=== PATIENT | male | born 1960 | race Caucasian/White ===

== ENCOUNTER 2022-02-05 09:31 | Inpatient (IN) ==
[2022-02-05] MEDS ORDERED: Iodixanol (CONTRAST) 320 MG/ML 100 ML SDV IV ONE (09:38)
[2022-02-05 09:57] LABS: ABS Lymphocytes 2.1 10^3/ul (1.0-4.8); ABS Monocytes 0.7 10^3/ul (0-0.8); ABS Neutrophils 9.8 10^3/ul (1.5-7.7); Eosinophil % 0.1 %; Hematocrit 41 % (42-52); Hemoglobin 13.6 g/dL (14.0-18.0); Lymphocyte % 16.9 %; Mean Corpuscular HGB Conc 34 g/dL (31-36); Mean Corpuscular Hemoglobin 30 pg (27-31); Mean Corpuscular Volume 90 fL (80-94); Mean Platelet Volume 7.6 fL (7.4-10.4); Nucleated Red Blood Cells % 0.1; Platelet Count 180 10^3/uL (150-450); Red Blood Count 4.53 10^6 /uL (4.18-5.48); Red Cell Distribution Width 13 % (10-15); White Blood Count 12.6 10^3/uL (3.5-10.8)
[2022-02-05 10:23] LABS: Activated Partial Thrombo Time 24.7 seconds (26.0-38.0); INR 1.07 (0.89-1.11)
[2022-02-05 10:55] LABS: Albumin 4.6 g/dL (3.2-5.2); Albumin/Globulin Ratio 1.5 (1-3); Calcium 9.6 mg/dL (8.6-10.3); HDL Cholesterol 51.5 mg/dL; Potassium 3.8 mmol/L (3.5-5.0); Total Bilirubin 0.7 mg/dL (0.2-1.0); Total Protein 7.6 g/dL (6.4-8.9); eGFR CKD-EPI 94.6 (>60)
[2022-02-05] MEDS ORDERED: NS 0.9% 1000 ml BAG 1,000 ML IV ONE (11:15)
[2022-02-05] MEDS ORDERED: HYDROcodone/Acetamin 10/325 TAB (NF) PO PRN (11:25)
[2022-02-05] MEDS: Enoxaparin 40 MG/0.4 ML SYR SUBCUT SCH (11:51)
[2022-02-05 11:55] LABS: C Reactive Protein 1.72 mg/L (<8.01)
[2022-02-05 11:56] LABS: TSH Ultra Thyroid Stim Horm 0.41 mcIU/mL (0.34-5.60)
[2022-02-05 12:38] LABS: Erythrocyte Sed Rate 4 mm/Hr (0-19)
[2022-02-05] MEDS ORDERED: Perflutren Lipid Microsphere 3 ML VIAL ONE (13:56)
[2022-02-05] MEDS ORDERED: Norepinephrine 16MCG/ML BAG NS 4,000 MCG/250 ML BAG IV SCH (14:00)
[2022-02-05 14:07] LABS: Urine Appearance Slightly Cloudy; Urine Bilirubin Negative (Negative); Urine Glucose Negative (Negative); Urine Ketones Negative (Negative); Urine Nitrite Negative (Negative); Urine Protein Negative (Negative); Urine Urobilinogen 0.2 (Negative) (Negative)
[2022-02-05 14:12] LABS: Urine Color Yellow
[2022-02-05 14:44] LABS: Urine Bacteria 1+ (Absent); Urine Red Blood Cell 3+(>10/hpf) (Absent); Urine Squamous Epithelial Cell Present (Absent); Urine White Blood Cell 3+(>20/hpf) (Absent)
[2022-02-05] MEDS: HYDROcodone/Acetamin 10/325 TAB (NF) PO PRN (19:42)
[2022-02-05] MEDS: Norepinephrine 16MCG/ML BAGD5W 4,000 MCG/250 ML BAG IV SCH (23:47)
[2022-02-05] MEDS ORDERED: Morphine 2 MG/ML SYRINGE IV ONE (23:53)
[2022-02-06] MEDS: NS 0.9% 1000 ml BAG 1,000 ML IV SCH ×2 (02:34→13:46)
[2022-02-06] MEDS: Norepinephrine 16MCG/ML BAGD5W 4,000 MCG/250 ML BAG IV SCH ×7 (04:04→23:49)
[2022-02-06 04:30] LABS: Hematocrit 37 % (42-52); Hemoglobin 12.8 g/dL (14.0-18.0); Mean Corpuscular HGB Conc 35 g/dL (31-36); Mean Corpuscular Hemoglobin 31 pg (27-31); Mean Corpuscular Volume 88 fL (80-94); Mean Platelet Volume 7.4 fL (7.4-10.4); Platelet Count 206 10^3/uL (150-450); Red Blood Count 4.15 10^6 /uL (4.18-5.48); Red Cell Distribution Width 14 % (10-15); White Blood Count 16.4 10^3/uL (3.5-10.8)
[2022-02-06 05:03] LABS: Calcium 8.6 mg/dL (8.6-10.3); Magnesium 1.9 mg/dL (1.9-2.7); Phosphorus 2.7 mg/dL (2.5-5.0); Potassium 3.4 mmol/L (3.5-5.0); eGFR CKD-EPI 89.9 (>60)
[2022-02-06] MEDS: HYDROcodone/Acetamin 10/325 TAB (NF) PO PRN ×4 (05:24→19:19)
[2022-02-06] MEDS ORDERED: Potassium Chlor 20 meq TAB.ER PO ONE (05:26)
[2022-02-06 06:07] LABS: ABS Basophils 0.1 10^3/ul (0-0.2); ABS Lymphocytes 3.5 10^3/ul (1.0-4.8); ABS Monocytes 1.6 10^3/ul (0-0.8); ABS Neutrophils 11.2 10^3/ul (1.5-7.7); Eosinophil % 0.2 %; Lymphocyte % 21.3 %
[2022-02-06] MEDS ORDERED: Magnesium Sulfate IV 1GM/100ML 1 GM/100 ML BAG IV ONE (07:20)
[2022-02-06] MEDS: Aspirin EC 81 mg TAB.EC (enteric coated) PO SCH (08:38)
[2022-02-06] MEDS: cefTRIAXone 1 gm/50 mL D5W 1 GM/50 ML BAG IV SCH (09:44)
[2022-02-06] MEDS: Lidocaine PATCH 5% PATCH TRANSDERM SCH ×2 (11:28→17:13)
[2022-02-06] MEDS: Enoxaparin 40 MG/0.4 ML SYR SUBCUT SCH (11:29)
[2022-02-06] MEDS ORDERED: Iohexol 350 (CONTRAST) 500 ML MDV IV ONE (12:20)
[2022-02-07] MEDS: HYDROcodone/Acetamin 10/325 TAB (NF) PO PRN ×5 (01:12→20:34)
[2022-02-07 04:30] LABS: Hematocrit 35 % (42-52); Hemoglobin 12.2 g/dL (14.0-18.0); Mean Corpuscular HGB Conc 35 g/dL (31-36); Mean Corpuscular Hemoglobin 31 pg (27-31); Mean Corpuscular Volume 89 fL (80-94); Mean Platelet Volume 7.3 fL (7.4-10.4); Platelet Count 183 10^3/uL (150-450); Red Blood Count 3.91 10^6 /uL (4.18-5.48); Red Cell Distribution Width 13 % (10-15); White Blood Count 14.3 10^3/uL (3.5-10.8)
[2022-02-07 05:12] LABS: Calcium 8.4 mg/dL (8.6-10.3); Phosphorus 2.9 mg/dL (2.5-5.0); Potassium 3.7 mmol/L (3.5-5.0); eGFR CKD-EPI 99.7 (>60)
[2022-02-07] MEDS ORDERED: Potassium Chlor 20 meq TAB.ER PO ONE (05:26)
[2022-02-07] MEDS: Norepinephrine 16MCG/ML BAGD5W 4,000 MCG/250 ML BAG IV SCH ×2 (05:36→09:30)
[2022-02-07] MEDS: Lidocaine PATCH 5% PATCH TRANSDERM SCH (09:24)
[2022-02-07] MEDS: cefTRIAXone 1 gm/50 mL D5W 1 GM/50 ML BAG IV SCH (09:24)
[2022-02-07] MEDS: Aspirin EC 81 mg TAB.EC (enteric coated) PO SCH (09:25)
[2022-02-07] MEDS ORDERED: Magnesium Hydroxide LIQ 30 ML UDC PO ONE (09:26)
[2022-02-07] MEDS: Enoxaparin 40 MG/0.4 ML SYR SUBCUT SCH (12:29)
[2022-02-08 05:35] LABS: Hematocrit 34 % (42-52); Hemoglobin 11.1 g/dL (14.0-18.0); Mean Corpuscular HGB Conc 33 g/dL (31-36); Mean Corpuscular Hemoglobin 29 pg (27-31); Mean Corpuscular Volume 90 fL (80-94); Mean Platelet Volume 7.3 fL (7.4-10.4); Platelet Count 169 10^3/uL (150-450); Red Blood Count 3.78 10^6 /uL (4.18-5.48); Red Cell Distribution Width 14 % (10-15); White Blood Count 10.1 10^3/uL (3.5-10.8)
[2022-02-08] MEDS: HYDROcodone/Acetamin 10/325 TAB (NF) PO PRN ×4 (05:39→21:19)
[2022-02-08 06:20] LABS: Calcium 8.8 mg/dL (8.6-10.3); Magnesium 2.2 mg/dL (1.9-2.7); Potassium 3.9 mmol/L (3.5-5.0); eGFR CKD-EPI 99.4 (>60)
[2022-02-08] MEDS: Lidocaine PATCH 5% PATCH TRANSDERM SCH (08:15)
[2022-02-08] MEDS: Aspirin EC 81 mg TAB.EC (enteric coated) PO SCH (08:16)
[2022-02-08] MEDS: cefTRIAXone 1 gm/50 mL D5W 1 GM/50 ML BAG IV SCH (08:19)
[2022-02-08] MEDS: Enoxaparin 40 MG/0.4 ML SYR SUBCUT SCH (12:21)
[2022-02-09] MEDS: HYDROcodone/Acetamin 10/325 TAB (NF) PO PRN ×2 (00:54→15:23)
[2022-02-09 06:54] LABS: ABS Eosinophils 0.2 10^3/ul (0-0.6); ABS Lymphocytes 2.7 10^3/ul (1.0-4.8); ABS Monocytes 0.7 10^3/ul (0-0.8); ABS Neutrophils 4.9 10^3/ul (1.5-7.7); Eosinophil % 2.2 %; Hematocrit 32 % (42-52); Hemoglobin 10.9 g/dL (14.0-18.0); Lymphocyte % 31.7 %; Mean Corpuscular HGB Conc 34 g/dL (31-36); Mean Corpuscular Hemoglobin 31 pg (27-31); Mean Corpuscular Volume 90 fL (80-94); Mean Platelet Volume 7.3 fL (7.4-10.4); Platelet Count 165 10^3/uL (150-450); Red Blood Count 3.53 10^6 /uL (4.18-5.48); Red Cell Distribution Width 14 % (10-15); White Blood Count 8.6 10^3/uL (3.5-10.8)
[2022-02-09 07:50] LABS: Calcium 8.7 mg/dL (8.6-10.3); Magnesium 2.1 mg/dL (1.9-2.7); Potassium 3.7 mmol/L (3.5-5.0); eGFR CKD-EPI 97.1 (>60)
[2022-02-09] MEDS: Aspirin EC 81 mg TAB.EC (enteric coated) PO SCH (08:56)
[2022-02-09] MEDS: Lidocaine PATCH 5% PATCH TRANSDERM SCH (08:56)
[2022-02-09] MEDS: cefTRIAXone 1 gm/50 mL D5W 1 GM/50 ML BAG IV SCH (08:57)
[2022-02-09] MEDS: Enoxaparin 40 MG/0.4 ML SYR SUBCUT SCH (11:50)
[2022-02-10] MEDS: HYDROcodone/Acetamin 10/325 TAB (NF) PO PRN ×2 (03:42→08:59)
[2022-02-10] MEDS: Lidocaine PATCH 5% PATCH TRANSDERM SCH (08:59)
[2022-02-10] MEDS: Aspirin EC 81 mg TAB.EC (enteric coated) PO SCH (08:59)
[2022-02-10] MEDS: cefTRIAXone 1 gm/50 mL D5W 1 GM/50 ML BAG IV SCH (09:51)
[2022-02-10 12:08] VITALS: BP 89/42
== END 2022-02-10 13:30 | disposition home or self-care (01) | DRG 65 ==
LOC: ED 09:31 → EDHOLD 11:17 → SUATTDRO 11:17 → ICU 14:08
PROVIDERS: ADMIT Internal Medicine; ATTEND Internal Medicine